=== PATIENT | female | born 1955 | race Caucasian/White ===

== ENCOUNTER 2023-12-15 12:59 | Outpatient (AMB) | payer MEDICARE, SELFPAY ==
--- NOTE | 2023-12-15 13:11 | MHC.PC.OV ---
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 Allergies No Known Allergies Allergy (Verified 12/15/23 13:11) Tobacco use date assessed: 12/15/23 Fall risk assessment: No Falls in past year Last assessed Fall Risk: 12/15/23 Dental Screening Dental Screen Date: 12/15/23 Did you have a dental visit in the last 12 months?: Yes Did you have a dental problem in the last 6 months where you did not have access to dental care?: No Was dental information given to patient?: Patient has dentist HPI HPI Comments History of Present Illness Details This is a 68 year old female with a past medical history of hypothyroid presenting to [facility] care and for physical exam. Was following with endocrine as primary care but could no longer Hypothyroid: on levothyroxine 112mcg daily. Mammogram 02/2023 Gynecology: s/p hysterectomy 1999 Colonoscopy [id number] Yamila WYATT see HPI PHYSICAL EXAM: GENERAL: Alert and oriented x 3. NAD EYES: EOMI. Anicteric. HENT: Moist mucous membranes. No scleral icterus. No cervical lymphadenopathy. LUNGS: Clear to auscultation bilaterally. CARDIOVASCULAR: Regular rate and rhythm. No murmur. No JVD. ABDOMEN: Soft, non-tender +bs EXTREMITIES: No edema. Non-tender. SKIN: No rashes or lesions. Warm. NEUROLOGIC: No focal neurological deficits. CN II-XII grossly intact PSYCHIATRIC: Cooperative. 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 1. Little interest or pleasure in doing things: not at all 2. Feeling down, depressed, or hopeless: not at all 3. Trouble falling or staying asleep, or sleeping too much: not at all 4. Feeling tired or having little energy: not at all 5. Poor appetite or overeating: not at all 6. Feeling bad about yourself - or that you are a failure or have let yourself or your family down: not at all 7. Trouble concentrating on things, such as reading the newspaper or watching television: not at all 8. Moving or speaking so slowly that other people could have noticed. Or the opposite - being so fidgety or restless that you have been moving around a lot more than usual: not at all 9. Thoughts that you would be better off or of hurting yourself in some way: not at all Total score: 0 Depression Screening Interpretation: Negative (Neg) Depression Screening Done: Yes 37506 - PHQ-9 Billing: Yes Source: Developed by Drs. Adonis Easton, Khloe Luu, [place] Junior and colleagues, with an educational néstor from [employer]. Thrive Questionnaire Date Thrive assessed: 12/15/23 I am a: Patient What is your living situation today?: I have a steady place to live Within the past 12 months, did the food you bought not last and you didn't have the money to get more?: Never true Within the past 12 months, did you worry whether your food would run out before you got money to buy more?: Never true Do you have trouble paying for medicines?: No Do you have trouble getting transportation to medical appointments?: No Do you have trouble paying your heating and electricity bill?: No Do you have trouble taking care of your child, family member or friend?: No Do you have trouble with day-to-day activities such as bathing, preparing meals, shopping, managing finances, etc.?: No Are you currently unemployed and looking for a job?: No Are you interested in more education?: No Please select the resources that you would like help with: None Currently or been in a relationship where the following occur: No concerns reported THRIVE Score: 0 AUDIT C Alcohol Use Questionnaire (AUDIT-C) 1. How often do you have a drink containing alcohol?: 2-4 times a month 2. How many drinks containing alcohol do you have on a typical day when you are drinking?: 1 or 2 3. How often do you have six or more drinks on one occasion?: Never Total Score: 2 Score Reviewed/Action Taken: No TOBY-7 AMB Questionnaire TOBY-7 Date TOBY - 7 assessed: 12/15/23 Feeling nervous, anxious, or on edge: 0 = Not at all Not being able to stop or control worryin = Not at all Worrying too much about different things: 0 = Not at all Trouble relaxin = Not at all Being so restless that it is hard to sit still: 0 = Not at all Becoming easily annoyed or irritable: 0 = Not at all Feeling afraid as if something awful might happen: 0 = Not at all Total TOBY-7 score (0-4 normal; 5-9 mild; 10-14 moderate; 15-21 severe): 0 Source: Developed by Drs. Adonis Easton, Khloe Luu, [place] Junior and colleagues, with an educational néstor from [employer]. TOBY-7 Assessment Billing TOBY-7 Assessment Tool: TOBY-7 Assessment [id number] Physical exam (Primary Care) Vital Signs: Last Vital Signs Temp 98.6 F 12/15/23 13:14 Pulse 67 12/15/23 13:14 Resp 12 12/15/23 13:14 BP 114/68 12/15/23 13:14 Pulse Ox 98 12/15/23 13:14 Oxygen Delivery Method Room Air 12/15/23 13:14 BMI result Body Mass Index 19.8 Tobacco/Smoking Status: Tobacco use Status Tobacco use date assessed 12/15/23 12/15/23 13:17 Patient Tobacco Use Status Former Tobacco user 12/15/23 13:17 e-Cigarette/Vaping Use Never Used 12/15/23 13:17 PHQ-9: PHQ-9 Score PHQ-9: Total score 0 12/17/23 11:38 Depression Screening Interpretation: Negative (Neg) Thrive Assessment: Date of Thrive Assessment Date Thrive assessed 12/15/23 12/15/23 14:43 Currently or been in a relationship where the following occur: No concerns reported Immunizations Boostrix Tdap 2.5 Lf unit-8 mcg-5 Lf/0.5 mL intramuscular syringe Performing Provider: Avelina Patel MD Performing Location: [facility] Administered by: Olivia Wakefield CMA on 12/15/23 14:39 Dose Route Admin Location Dispensed Lot Number Expiration Date [employer]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 0.5 mL IM Left Deltoid 0.5 mL [id number] 01/04/26 [id number] [employer] VIS Given Date VIS Provided VIS Publication Date 12/15/23 Single Vaccine 21 Eligibility Eligibility Date Funding Source Not VF Eligible 12/15/23 Private Assessment and Plan Assessment & Plan (1) Physical exam: Comment: Preventive measures for age discussed Declines bone density Tdap today Mammo, colonoscopy UTD Code(s): Z00.00 - Encounter for general adult medical examination without abnormal findings (2) Hypothyroid: Code(s): E03.9 - Hypothyroidism, unspecified Qualifiers: Hypothyroidism type: unspecified Qualified Code(s): E03.9 - Hypothyroidism, unspecified Plan: Clinically and biochemically euthyroid (3) Immunity status testing: Code(s): Z01.84 - Encounter for antibody response examination Orders: Orders MM screening mammo BI 12/15/23 Z12.31 - Encounter for screening mammogram for malignant neoplasm of breast TSH reflex Free T4 12/15/23 E03.9 - Hypothyroidism, unspecified, Z00.00 - Encounter for general adult medical examination without abnormal findings, Z13.0 - Encounter for screening for diseases of the blood and blood-forming organs and certain disorders involving the immune mechanism, Z13.220 - Encounter for screening for lipoid disorders, Z13.228 - Encounter for screening for other metabolic disorders Complete Blood Count Auto Diff 12/15/23 E03.9 - Hypothyroidism, unspecified, Z00.00 - Encounter for general adult medical examination without abnormal findings, Z13.0 - Encounter for screening for diseases of the blood and blood-forming organs and certain disorders involving the immune mechanism, Z13.220 - Encounter for screening for lipoid disorders, Z13.228 - Encounter for screening for other metabolic disorders Comprehensive Met. Panel 12/15/23 E03.9 - Hypothyroidism, unspecified, Z00.00 - Encounter for general adult medical examination without abnormal findings, Z13.0 - Encounter for screening for diseases of the blood and blood-forming organs and certain disorders involving the immune mechanism, Z13.220 - Encounter for screening for lipoid disorders, Z13.228 - Encounter for screening for other metabolic disorders Lipid Panel 12/15/23 E03.9 - Hypothyroidism, unspecified, Z00.00 - Encounter for general adult medical examination without abnormal findings, Z13.0 - Encounter for screening for diseases of the blood and blood-forming organs and certain disorders involving the immune mechanism, Z13.220 - Encounter for screening for lipoid disorders, Z13.228 - Encounter for screening for other metabolic disorders T Spot TB 12/15/23 Z01.84 - Encounter for antibody response examination TDaP Immunization 12/15/23 Z23 - Encounter for immunization Referrals Dermatology Referral L57.0 - Actinic keratosis, Z01.84 - Encounter for antibody response examination Coding Level of Care Code Est Pt Prev Care >65y(77406) Diagnoses Physical exam Z00.00 Hypothyroidism, unspecified type E03.9 Hypothyroidism type: unspecified Immunity status testing Z.84 Additional Codes TOBY-7 Assessment Billing - TOBY-7 Assessment Tool: TOBY-7 Assessment [id number] ([id number])
[2023-12-15 13:14] VITALS: BP 114/68; PULSE 67; RESP 12; TEMP 37; O2SAT 98; BMI 19.8
== END 2023-12-15 14:04 | disposition home or self-care (01) ==
PROVIDERS: PCP Internal Medicine; Visit Provider Internal Medicine
DX: E03.9 Hypothyroidism, unspecified (principal); Z01.84 Encounter for antibody response examination; Z23 Encounter for immunization
CPT/HCPCS: 90471; 90715; 99214

== ENCOUNTER 2023-12-15 15:00 | Outpatient (REF) | payer MEDICARE, SELFPAY ==
[2023-12-15 17:35] LABS: MANUAL DIFF FLAG NO
[2023-12-15 17:37] LABS: Basophils Percent Auto 0.6 % (0-2); Eosinophils Percent Auto 0.8 % (0-4); Hematocrit 37.9 % (37.0-47.0); Hemoglobin 13.3 g/dl (12.0-16.0); Imm Gran Abs Auto 0.01 X10*3/uL (0.00-0.03); Imm Gran Pct Auto 0.2 % (0.0-0.4); Lymphocytes Absolute Auto 1.3 X10*3/uL (1.2-4.9); Lymphocytes Percent Auto 27.1 % (20-40); Mean Corpuscular HGB Conc 35.1 g/dl (31.0-35.0); Mean Corpuscular Hemoglobin 33.1 pg (27.0-33.0); Mean Corpuscular Volume 94.3 fL (80.0-98.0); Mean Platelet Volume 10.4 fL (9.4-12.3); Monocytes Absolute Auto 0.4 X10*3/uL (0.1-1.2); Monocytes Percent Auto 8.7 % (2-11); Neutrophils Percent Auto 62.6 % (45-73); Platelet Count 207 X10*3/uL (160-400); Red Blood Count 4.02 X10*6/uL (4.20-5.50); Red Cell Distribution Width 12.9 % (11.0-16.0); White Blood Count 4.8 X10*3/uL (4.8-10.8)
[2023-12-16 01:37] LABS: Alanine Aminotransferase 33 U/L (0-31); Albumin Level 4.4 g/dL (3.5-5.0); Alkaline Phosphatase 59 U/L (39-117); Anion Gap 13 (12-20); Aspartate Amino Transferase 34 U/L (5-31); Bilirubin Total 0.4 mg/dL (0.0-1.0); Blood Urea Nitrogen 18 mg/dL (9-16); Calcium 9.5 mg/dL (8.4-10.2); Carbon Dioxide 24 mmol/L (22-29); Chloride 105 mmol/L (96-108); Cholesterol 212 mg/dL (<200); Estimated Glomerular Filt Rate > 60; Glucose Random 85 mg/dL (60-115); HDL Cholesterol 76 mg/dL (>40); LDL Cholesterol Calculated 128 mg/dL (<100); Potassium 4.4 mmol/L (3.3-5.1); Sodium 138 mmol/L (135-145); Triglycerides 43 mg/dL (<150)
[2023-12-16 01:40] LABS: TSH reflex Free T4 0.66 uIU/mL (0.32-4.0)
[2023-12-17 21:43] LABS: TS Negative Control Passed; TS Panel A 0; TS Panel B 1; TS Positive Control Passed; TSpotTB Negative (Negative)
== END 2023-12-15 15:01 | disposition home or self-care (01) ==
LOC: HO.WFDLDS 15:00
PROVIDERS: Visit Provider Internal Medicine
DX: Z00.00 Encounter for general adult medical examination without abnormal findings (principal); E03.9 Hypothyroidism, unspecified; Z13.0 Encounter for screening for diseases of the blood and blood-forming organs and certain disorders involving the immune mechanism; Z13.220 Encounter for screening for lipoid disorders; Z13.228 Encounter for screening for other metabolic disorders
CPT/HCPCS: 36415; 80053; 80061; 84443; 85025; 86481

== ENCOUNTER 2024-12-16 15:53 | Outpatient (AMB) | payer MEDICARE, SELFPAY ==
--- NOTE | 2024-12-16 15:57 | A.OFFPC_ITS ---
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: No Is last menstrual period known: No Post menopausal: No Patient : No Allergies No Known Allergies Allergy (Verified 12/16/24 15:59) Medication List - Last Reconciled 12/17/24 by Avelina Patel MD levothyroxine (Synthroid) 112 mcg PO DAILY Tobacco use date assessed: 12/16/24 Fall risk assessment: No Falls in past year Last assessed Fall Risk: 12/16/24 Dental Screening Dental Screen Date: 12/16/24 Did you have a dental visit in the last 12 months?: Yes Did you have a dental problem in the last 6 months where you did not have access to dental care?: No Was dental information given to patient?: Patient has dentist HPI HPI Comments History of Present Illness Details This is a 69 year old female with a past medical history of hypothyroid, anemia, PUD presenting for physical exam Hypothyroid: on levothyroxine 112mcg daily. Mammogram 03/2024 Gynecology: s/p hysterectomy 1999 Colonoscopy [id number] Yamila WYATT see HPI PHYSICAL EXAM: GENERAL: Alert and oriented x 3. NAD EYES: EOMI. Anicteric. HENT: Moist mucous membranes. No scleral icterus. No cervical lymphadenopathy. LUNGS: Clear to auscultation bilaterally. CARDIOVASCULAR: Regular rate and rhythm. No murmur. No JVD. ABDOMEN: Soft, non-tender +bs EXTREMITIES: No edema. Non-tender. SKIN: No rashes or lesions. Warm. NEUROLOGIC: No focal neurological deficits. CN II-XII grossly intact PSYCHIATRIC: Cooperative. 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 1. Little interest or pleasure in doing things: not at all 2. Feeling down, depressed, or hopeless: not at all 3. Trouble falling or staying asleep, or sleeping too much: not at all 4. Feeling tired or having little energy: not at all 5. Poor appetite or overeating: not at all 6. Feeling bad about yourself - or that you are a failure or have let yourself or your family down: not at all 7. Trouble concentrating on things, such as reading the newspaper or watching television: not at all 8. Moving or speaking so slowly that other people could have noticed. Or the opposite - being so fidgety or restless that you have been moving around a lot more than usual: not at all 9. Thoughts that you would be better off or of hurting yourself in some way: not at all Total score: 0 Depression Screening Interpretation: Negative Depression Screening Done: Yes 72595 - PHQ-9 Billing: Yes Source: Developed by Drs. Adonis Easton, Khloe Luu, [place] Junior and colleagues, with an educational néstor from [employer]. Thrive Questionnaire Date Thrive assessed: 12/16/24 I am a: Patient What is your living situation today?: I have a steady place to live Within the past 12 months, did the food you bought not last and you didn't have the money to get more?: Never true Within the past 12 months, did you worry whether your food would run out before you got money to buy more?: Never true Do you have trouble paying for medicines?: No Do you have trouble getting transportation to medical appointments?: No Do you have trouble paying your heating and electricity bill?: No Do you have trouble taking care of your child, family member or friend?: No Do you have trouble with day-to-day activities such as bathing, preparing meals, shopping, managing finances, etc.?: No Are you currently unemployed and looking for a job?: Yes Are you interested in more education?: No Please select the resources that you would like help with: None Currently or been in a relationship where the following occur: No concerns reported THRIVE Score: 0 AUDIT C Alcohol Use Questionnaire (AUDIT-C) 1. How often do you have a drink containing alcohol?: 2-3 times a week 2. How many drinks containing alcohol do you have on a typical day when you are drinking?: 1 or 2 3. How often do you have six or more drinks on one occasion?: Never Total Score: 3 Score Reviewed/Action Taken: Yes TOBY-7 AMB Questionnaire TOBY-7 Date TOBY - 7 assessed: 12/16/24 Feeling nervous, anxious, or on edge: 0 = Not at all Not being able to stop or control worryin = Not at all Worrying too much about different things: 0 = Not at all Trouble relaxin = Not at all Being so restless that it is hard to sit still: 0 = Not at all Becoming easily annoyed or irritable: 0 = Not at all Feeling afraid as if something awful might happen: 0 = Not at all Total TOBY-7 score (0-4 normal; 5-9 mild; 10-14 moderate; 15-21 severe): 0 Source: Developed by Drs. Adonis Easton, Khloe Luu, [place] Junior and colleagues, with an educational néstor from [employer]. TOBY-7 Assessment Billing TOBY-7 Assessment Tool: TOBY-7 Assessment [id number] Physical exam (Primary Care) Vital Signs: Last Vital Signs Temp 98.5 F 12/16/24 16:01 Pulse 70 12/16/24 16:01 Resp 16 12/16/24 16:01 BP 123/66 12/16/24 16:01 Pulse Ox 99 12/16/24 16:01 Oxygen Delivery Method Room Air 12/16/24 16:01 BMI result Body Mass Index 19.5 Tobacco/Smoking Status: Tobacco use Status Tobacco use date assessed 12/16/24 12/16/24 16:02 Patient Tobacco Use Status Former Tobacco user 12/16/24 15:57 e-Cigarette/Vaping Use Never Used 12/16/24 15:57 PHQ-9: PHQ-9 Score PHQ-9: Total score 0 12/16/24 16:02 Depression Screening Interpretation: Negative Thrive Assessment: Date of Thrive Assessment Date Thrive assessed 12/16/24 12/16/24 16:02 Currently or been in a relationship where the following occur: No concerns reported Coding Level of Care Code Est Pt Prev Care >65y(40079) Diagnoses Physical exam Z00.00 Hypothyroidism, unspecified type E03.9 Hypothyroidism type: unspecified Additional Codes TOBY-7 Assessment Billing - TOBY-7 Assessment Tool: TOBY-7 Assessment 34660 ([id number]) PHQ-9 - 41545 - PHQ-9 Billing: Yes ([id number]) Assessment & Plan Assessment & Plan (1) Physical exam: Code(s): Z00.00 - Encounter for general adult medical examination without abnormal findings Category: Medical (2) Hypothyroid: Code(s): E03.9 - Hypothyroidism, unspecified Category: Medical Qualifiers: Hypothyroidism type: unspecified Qualified Code(s): E03.9 - Hypothyroidism, unspecified Plan 69 yo for CPE Interval history reviewed Preventive measures for age discussed Declines bone density Mammo, colonoscopy UTD Labs mammo ordered Orders: Orders Complete Blood Count Auto Diff 12/16/24 D64.9 - Anemia, unspecified, E03.9 - Hypothyroidism, unspecified, Z13.228 - Encounter for screening for other m etabolic disorders Comprehensive Met. Panel 12/16/24 D64.9 - Anemia, unspecified, E03.9 - Hypothyroidism, unspecified, Z13.228 - Encounter for screening for other metabolic disorders IRON PROFILE 12/16/24 D64.9 - Anemia, unspecified, E03.9 - Hypothyroidism, unspecified, Z13.228 - Encounter for screening for other metabolic disorders Vitamin B12 and Folate 12/16/24 D64.9 - Anemia, unspecified, E03.9 - Hypothyroidism, unspecified, Z13.228 - Encounter for screening for other metabolic disorders TSH reflex Free T4 12/16/24 D64.9 - Anemia, unspecified, E03.9 - Hypothyroidism, unspecified, Z13.228 - Encounter for screening for other metabolic disorders Lipid Panel 12/16/24 Z13.220 - Encounter for screening for lipoid disorders MM screening mammo BI 12/16/24 Z12.31 - Encounter for screening mammogram for malignant neoplasm of breast
[2024-12-16 16:01] VITALS: BP 123/66; PULSE 70; RESP 16; TEMP 36.9; O2SAT 99; BMI 19.5
--- OUTSIDE RECORDS SUMMARY | 2024-12-16 16:18 | XMS_ITS | Clinical Summary ---
Author Organization [facility] Address [address] [place] [phone] Phone Care Team Providers Care Billing Collections Specialist Name Role Phone Avelina Patel MD Primary Care Provider [phone] Allergies No known active allergies Medications levothyroxine (SYNTHROID, LEVOTHROID) 112 mcg tablet Take by mouth 1 (one) time each day. Active Active Problems Problem Noted Date Diagnosed Date Anemia in other chronic diseases classified else where 06/17/2024 Gastroesophageal reflux disease without esophagi tis 06/17/2024 Diverticulitis of large inte tracey without perforation or abscess without bleeding 06/17/2024 Family History Medical History Relation Name Comments Breast cancer Mother Relation Name Status Comments Mother Social History Tobacco Use Types Packs/Day Years Used Date Smoking Tobacco: Never Tobacco Cessation:Counseling Given: Not Answered Alcohol Use Standard Drinks/Week Comments Yes 0 (1 standard drink = 0.6 oz pur e alcohol) social Comments No Sex and Gender Information Value Date Recorded Sex Assigned at Not on file Legal Sex Female 9:51 AM EST Gender Identity Not on file Sexual Orientation Not on file Obstetrics History Last Filed Vital Signs Vital Sign Reading Time Taken Comments Blood Pressure - - Pulse - - Temperature - - Respiratory Rate - - Oxygen Saturation - - Inhaled Oxygen Concentration - - Weight 47.6 kg (105 lb) 06/24/2024 12:53 PM EST Height 152.4 cm (5') 06/24/2024 12:53 PM EST Body Mass Index 20.51 06/24/2024 12:53 PM EST Plan of Treatment Health Maintenance Due Date Last Done Comments DTaP,Tdap,and Td Vaccines (1 - Tdap) 1975 Pneumococcal Vaccine: 50+ Years (1 of 1 - PCV) 2006 Zoster Vaccines (1 of 2) 2006 Falls Risk Assessment 05/01/2022 Hepatitis C Screening 05/01/2022 Medicare Annual Wellness Visit 05/01/2022 Osteoporosis Screening (Bone Density Screening) 05/01/2022 Social Influencers of Health Screening 05/01/2022 COVID-19 Vaccine (2 - season) 2024 09/26/2020 Depression Screening 05/29/2024 Influenza Vaccine (#1) 2025 Breast Cancer Screening 04/05/2026 04/05/20 24, 03/08/2023, 03/04/2022, Additional history exists RSV Immunization Adult Patients (1 - 1-dose 75+ series) 2031 Colorectal Cancer Screening: Colonoscopy 07/30/2033 07/31/2023, 04/12/2023 HIB Vaccines Aged Out No longer eligi ble based on patient's age to complete this topic HPV Vaccines Aged Out No longer eligi ble based on patient's age to complete this topic Hepatitis A Vaccines Aged Out No long er eligible based on patient's age to complete this topic Hepatitis B Vaccines Aged Out No long er eligible based on patient's age to complete this topic IPV Vaccines Aged Out No longer eligi ble based on patient's age to complete this topic MMR Vaccines Aged Out No longer eligi ble based on patient's age to complete this topic Meningococcal ACWY Vaccine Aged Out N o longer eligible based on patient's age to complete this topic Meningococcal B Vaccine Aged Out No l onger eligible based on patient's age to complete this topic RSV Immunization Patients Under 20 months Aged Out No longer eligible based on patient's age to complete this topic Varicella Vaccines Aged Out No longer eligible based on patient's age to complete this topic Procedures Procedure Name Priority Date/Time Associated Diagnosis Comments MG MAMMO DIGITAL SCREENING W RAMIRO BILAT Routine 04/05/2024 3:01 PM EST Encounter for screening mammogram for malignant neoplasm of breast COLONOSCOPY Routine 07/31/2023 10:13 AM EST from Last 3 Months or Most Recently Relevant to Health Maintenance Results * MG Mammo Digital Screening w Ramiro bilat (04/05/2024 3:01 PM EST) Anatomical Region Laterality Modality Breast Bilateral Mammography 04/05/2024 5:03 PM EST Impressions 04/05/2024 5:07 PM EST No mammographic evidence of malignancy. No suspicious interval change. A negative mammogram in the presence of a clinically suspicious palpable abnormality does not preclude the possibility of malignancy or alter the indications for biopsy. ASSESSMENT: BI-RADS 1: NEGATIVE RECOMMENDATION(S): 1: Routine screening mammogram BILATERAL in 1 year. -------- FINAL REPORT -------- Dictated By: Dilip Lindquist Dictated Date: 04/05/2024 17:03 ET Assigned Physician: Dilip Lindquist Reviewed and Electronically Signed By: Dilip Lindquist Signed Date: 04/05/2024 17:07 ET Workstation ID: [id number] Transcribed By: Self Edit Transcribed Date: 04/05/2024 17:03 ET Narrative 04/05/2024 5:07 PM EST EXAM: SCREENING MAMMOGRAPHY, BILATERAL HISTORY: SCREENING. Mother diagnosed with breast cancer age 62 COMPARISON: 03/06/2023, 03/04/2022, 12/04/2020, 12/02/2019 TECHNIQUE: Synthesized CC and MLO projections of each breast. Tomosynthesis of each breast in the CC and MLO projections. ADDITIONAL IMAGING: None Computer-aided detection was employed with the [employer] AI 3-D. TISSUE DENSITY: The breasts are heterogeneously dense, which may obscure small masses. (BI-RADS category C) FINDINGS: RIGHT BREAST: No suspicious mass. No suspicious calcification. No distortion. No additional suspicious right breast findings LEFT BREAST: No suspicious mass. No suspicious calcification. No distortion. No additional suspicious left breast findings Procedure Note Dilip Lindquist MD - 04/05/2024 EXAM: SCREENING MAMMOGRAPHY, BILATERAL HISTORY: SCREENING. Mother diagnosed with breast cancer age 62 COMPARISON: 03/06/2023, 03/04/2022, 12/04/2020, 12/02/2019 TECHNIQUE: Synthesized CC and MLO projections of each breast.Tomosynthesis of each breast in the CC and MLO projections. ADDITIONAL IMAGING: None Computer-aided detection was employed with the [employer] AI 3-D. TISSUE DENSITY: The breasts are heterogeneously dense, which may obscuresmall masses. (BI-RADS category C) FINDINGS: RIGHT BREAST: No suspicious mass. No suspicious calcification. No distortion. Noadditional suspicious right breast findings LEFT BREAST: No suspicious mass. No suspicious calcification. No distortion. Noadditional suspicious left breast findings IMPRESSION: No mammographic evidence of malignancy. No suspicious interval change. A negative mammogram in the presence of a clinically suspicious palpableabnormality does not preclude the possibility of malignancy or alter theindications for biopsy. ASSESSMENT: BI-RADS 1: NEGATIVE RECOMMENDATION(S): 1: Routine screening mammogram BILATERAL in 1 year. -------- FINAL REPORT -------- Dictated By: Dilip Lindquist Dictated Date: 04/05/2024 17:03 ET Assigned Physician: Dilip Lindquist Reviewed and Electronically Signed By: Dilip Lindquist Signed Date: 04/05/2024 17:07 ET Workstation ID: [id number] Transcribed By: Self Edit Transcribed Date: 04/05/2024 17:03 ET Avelina Patel MD IMG BI PROCEDURES Final Result * COLONOSCOPY (07/31/2023 10:13 AM EST) Anatomical Region Laterality Modality Endoscopy Historical Provider GI~PROCEDURE ORDERABLES F inal Result from Last 3 Months or Most Recently Relevant to Health Maintenance Insurance MEDICARE Care Teams Billing Collections Specialist Relationship Specialty Start Date End Date Avelina Patel MD [address] [place] [address] [address] [place] [address] PCP - General Endocrinology 06/24/24
== END 2024-12-16 16:21 | disposition home or self-care (01) ==
LOC: HO.HMCFM 15:54
PROVIDERS: PCP Internal Medicine; Visit Provider Internal Medicine
DX: Z00.00 Encounter for general adult medical examination without abnormal findings (principal); E03.9 Hypothyroidism, unspecified

== ENCOUNTER → 2024-12-16 15:53 | Outpatient (BNVA) | payer MEDICARE, SELFPAY | PROVIDERS: PCP Internal Medicine; Visit Provider Internal Medicine | DX: Z00.00 Encounter for general adult medical examination without abnormal findings (principal); E03.9 Hypothyroidism, unspecified; Z79.899 Other long term (current) drug therapy; Z13.31 Encounter for screening for depression; Z13.30 Encounter for screening examination for mental health and behavioral disorders, unspecified | CPT/HCPCS: 96127; 99397 ==

== ENCOUNTER 2024-12-19 10:54 | Outpatient (REF) | payer MEDICARE, SELFPAY ==
--- OUTSIDE RECORDS SUMMARY | 2024-12-19 11:43 | XMS_ITS | Clinical Summary ---
Author Organization [facility] Address [address] [place] [phone] Phone Care Team Providers Care Gang Drill Press Operator Name Role Phone Avelina Patel MD Primary Care Provider [phone] Allergies No known active allergies Medications levothyroxine [...] Signed Date: 04/05/2024 17:07 ET Workstation ID: [id number] Transcribed By: Self Edit Transcribed Date: 04/05/2024 17:03 ET Narrative 04/05/2024 5:07 PM EST EXAM: SCREENING MAMMOGRAPHY, BILATERAL HISTORY: SCREENING. Mother diagnosed with breast cancer age 62 COMPARISON: 03/06/2023, 03/04/2022, 12/04/2020, 12/02/2019 TECHNIQUE: Synthesized CC and MLO projections of each breast. Tomosynthesis of each breast in the CC and MLO projections. ADDITIONAL IMAGING: None Computer-aided detection was employed with the [employer] AI 3-D. TISSUE DENSITY: The breasts are [...] Signed Date: 04/05/2024 17:07 ET Workstation ID: [id number] Transcribed By: Self Edit Transcribed Date: 04/05/2024 17:03 ET Avelina Patel MD IMG BI PROCEDURES Final Result * COLONOSCOPY (07/31/2023 10:13 AM EST) Anatomical Region Laterality Modality Endoscopy Historical Provider GI~PROCEDURE ORDERABLES F inal Result from Last 3 Months or Most Recently Relevant to Health Maintenance Insurance MEDICARE Care Teams Gang Drill Press Operator Relationship Specialty Start Date End Date Avelina Patel MD [address] [place] [address] [address] [place] [address] PCP - General Endocrinology 06/24/24
[2024-12-19 14:10] LABS: MANUAL DIFF FLAG NO
[2024-12-19 14:13] LABS: Hematocrit 37.8 % (37.0-47.0); Hemoglobin 12.8 g/dl (12.0-16.0); Imm Gran Abs Auto 0.00 X10*3/uL (0.00-0.03); Imm Gran Pct Auto 0.0 % (0.0-0.4); Lymphocytes Absolute Auto 1.2 X10*3/uL (1.2-4.9); Mean Corpuscular HGB Conc 33.9 g/dl (31.0-35.0); Mean Corpuscular Hemoglobin 33.2 pg (27.0-33.0); Mean Corpuscular Volume 97.9 fL (80.0-98.0); NRBC Abs Auto 0.000 X10*3/uL (0.0-0.012); NRBC Pct Auto 0.0 /100WBC (0.0-0.2); Platelet Count 202 X10*3/uL (160-400); Red Blood Count 3.86 X10*6/uL (4.20-5.50); White Blood Count 3.7 X10*3/uL (4.8-10.8)
[2024-12-19 14:39] LABS: Alanine Aminotransferase 24 U/L (0-31); Albumin Level 4.5 g/dL (3.5-5.0); Alkaline Phosphatase 76 U/L (39-117); Anion Gap 10 (12-20); Aspartate Amino Transferase 32 U/L (5-31); Blood Urea Nitrogen 12 mg/dL (9-16); Calcium 9.5 mg/dL (8.4-10.2); Carbon Dioxide 28 mmol/L (22-29); Chloride 105 mmol/L (96-108); Cholesterol 208 mg/dL (<200); Estimated Glomerular Filt Rate > 60; HDL Cholesterol 86 mg/dL (>40); Iron 64 mcg/dL (30-160); Percent Iron Saturation 20 % (15-50); Potassium 4.1 mmol/L (3.3-5.1); Sodium 139 mmol/L (135-145); Total Iron Binding Capacity 314 mcg/dL (228-428); Total Protein 7.1 g/dL (6.5-8.0); Triglycerides 40 mg/dL (<150); Unsaturated Iron Binding 250 ug/dL
[2024-12-19 15:01] LABS: Folate 12.5 ng/mL (> or = 4.0); Vitamin B12 583 pg/mL (200-900)
[2024-12-19 15:37] LABS: Free T4 (Free Thyroxine) 1.30 ng/dL (0.71-1.85)
== END 2024-12-19 10:55 | disposition home or self-care (01) ==
LOC: HO.WFDLDS 10:54
PROVIDERS: Visit Provider Internal Medicine
DX: Z13.220 Encounter for screening for lipoid disorders (principal); E03.9 Hypothyroidism, unspecified; D64.9 Anemia, unspecified; Z13.228 Encounter for screening for other metabolic disorders
CPT/HCPCS: 36415; 80053; 80061; 82607; 82746; 83540; 84439; 84443; 85025